=== PATIENT | male | born 1955 | race Caucasian/White ===

== ENCOUNTER 2016-11-26 06:39 | Day surgery (SDC) | payer MEDICARE, MEDICAID ==
[2016-11-26] MEDS: Lactated Ringers 1,000 ML IV SCH ×2 (07:48→10:29)
[2016-11-26] MEDS ORDERED: ceFAZolin 2 GM in Premix Bag 1 BAG IV ONE (08:00)
[2016-11-26] MEDS ORDERED: Ketorolac 30 MG/ML SDV IVPUSH ONE (08:15)
[2016-11-26] MEDS ORDERED: Glycopyrrolate 0.2 MG/ML 5 ML MDV IV ONE (08:15)
[2016-11-26] MEDS ORDERED: fentaNYL 100 MCG/2 ML SDV IV ONE (08:15)
[2016-11-26] MEDS ORDERED: ePHEDrine 50 MG/ML SDV IV ONE (08:15)
[2016-11-26] MEDS ORDERED: Midazolam 1 MG/ML 2 ML SDV IV ONE (08:15)
[2016-11-26] MEDS ORDERED: Propofol 200 MG/20 ML SDV IV ONE (08:15)
[2016-11-26] MEDS ORDERED: Rocuronium 50 MG/5 ML Vial IV ONE (08:15)
[2016-11-26] MEDS ORDERED: Succinylcholine 200 MG/10 ML MDV IV ONE (08:15)
[2016-11-26] MEDS ORDERED: Lidocaine 2% 100 MG/5 ML Syringe IVPUSH ONE (08:15)
[2016-11-26] MEDS ORDERED: Ondansetron 4 MG/2 ML SDV IVPUSH ONE (08:15)
[2016-11-26] MEDS ORDERED: Dexamethasone 4 MG/ML 5 ML MDV IVPUSH ONE (08:15)
[2016-11-26] MEDS ORDERED: Neostigmine Methylsulfate 10 MG/10 ML MDV IVPUSH ONE (08:15)
--- NOTE | 2016-11-26 08:22 | PCM.PN ---
- General Info Date of Service: 11/26/16 - Review of Systems Systems Review Comment:: 61 y/o male here for repair of ventral upper abdominal hernia. Site confirmed with patient and marked. He is stable to proceed with no recent significant changes to his health status. He agrees to proceed. - Patient Data Vitals - Most Recent: Last Vital Signs Temp 97.9 F 11/26/16 07:15 Pulse 56 L 11/26/16 07:15 Resp 20 11/26/16 07:15 BP 158/95 H 11/26/16 07:15 Pulse Ox 95 11/26/16 07:15 Weight - Most Recent: 238 lb Med Orders - Current: Current Medications Lactated Ringer's (Ringers, Lactated) 1,000 mls @ 125 mls/hr IV ASDIRECTED [facility] Last Admin: 11/26/16 07:48 Dose: 125 mls/hr Cefazolin Sodium/Dextrose 2 gm (/ Premix) 50 mls @ 100 mls/hr IV ONETIME ONE Stop: 11/26/16 08:29 Last Admin: 11/26/16 07:50 Dose: 100 mls/hr - Problem List Review Problem List Initiated/Reviewed/Updated: Yes - My Orders Last 24 Hours: My Active Orders 11/26/16 06:45 Patient Status [ADT] Routine Patient to Empty Bladder [RC] ASDIRECTED Verify Patient Consent Obtain [RC] ASDIRECTED Lactated Ringers [Ringers, Lactated] 1,000 ml IV ASDIRECTED Peripheral IV Insertion Adult [OM.PC] Routine Sequential Compression Device [OM.PC] Routine 11/26/16 08:00 ceFAZolin [Ancef] 2 gm Premix Bag 1 bag IV ONETIME 11/26/16 Breakfast Nothing Per Oral Diet [DIET] - Assessment Assessment:: Ventral hernia - Plan Plan:: Ventral hernia repair
[2016-11-26] MEDS ORDERED: Bupivacaine 0.25% 30 ML SDV INJECT ONE ×2 (08:46→09:36)
[2016-11-26] MEDS ORDERED: ceFAZolin 1 GM Vial ONE (08:47)
--- NOTE | 2016-11-26 09:58 | PCM.OPNOTE ---
- General Post-Op/Procedure Note Date of Surgery/Procedure: 11/26/16 Operative Procedure(s): Repair Ventral Hernia with Mesh Findings: Attenuated linea alba causing ventral hernia Pre Op Diagnosis: Ventral Hernia Post-Op Diagnosis: Same Anesthesia Technique: General ET Tube Primary Surgeon: Jim Herman Pathology: none Output, Urine Amount: 0 EBL in mLs: 20 Complications: None Condition: Good
[2016-11-26] MEDS ORDERED: Acetaminophen/oxyCODONE 325-5 MG Tab PO PRN (11:01)
[2016-11-26 11:29] VITALS: BP 145/95
--- NOTE | 2016-11-26 12:21 | OR ---
DATE OF OPERATION: 11/26/2016 SURGEON: Jim Herman MD REFERRING PHYSICIAN: Celine Riojas MD. PREOPERATIVE DIAGNOSIS: Ventral hernia. POSTOPERATIVE DIAGNOSIS: Ventral hernia. OPERATION PERFORMED: Repair of ventral hernia with mesh. INDICATIONS FOR SURGERY: This 61-year-old male has been noticing an intermittent bulge in his mid upper abdomen above the umbilicus. This is at times painful for him and does sometimes also interfere with his regular activities. FINDINGS: The patient has attenuated fascia of the linea alba above the umbilicus almost up to the area of the xiphoid. The fascia is quite thin in this area. There does not appear to be any underlying bowel involvement. The adjacent musculature appears satisfactory. PROCEDURE IN DETAIL: The patient was taken to the operating room, given general endotracheal anesthesia. The abdomen was sterilely prepped and draped. A vertical midline abdominal incision was made. This was carefully carried down to the underlying midline fascia which was exposed and incised in the midline. This was carefully examined along its length from just below the xiphoid to the umbilicus. The fascia was noted to be markedly attenuated. The underlying peritoneum was not entered but there did not appear to be any evidence of bowel involvement. The fascia in the midline was cleared of subcutaneous tissue and a markedly attenuated areas are trimmed out. The midline fascia was then reapproximated in a [id number] fashion bringing the left side of the fascia anterior to the right side of the divided fascia. This fascia closure was secured in the midline with interrupted 0 Prolene sutures and incorporated on the anterior surface of the fascia in these repaired sutures is a piece of polypropylene mesh. This repaired the attenuated fascia reapproximating the rectus muscle in their anatomic position and reinforced the midline fascia with mesh. After the fascia had been repaired in the midline with the mesh secured to it, the lateral edges of the mesh were trimmed and then the periphery of the mesh was tacked down to the underlying fascia with a running 0 Vicryl. The wound was irrigated with Ancef and saline solution which had also been used to soak the mesh before its placement. The wound was infiltrated with Marcaine. Then closure was completed by approximating the subcutaneous tissue and tacking it down to the underlying mesh with interrupted 3-0 Vicryl and the skin was closed with running 4-0 Vicryl subcuticular stitch, Steri-Strips and Benzoin. Sterile dry dressing was placed. The patient was then awakened, extubated, and taken from the operating room in satisfactory condition. ESTIMATED BLOOD LOSS: 20 mL. COMPLICATIONS: None. PROGNOSIS: Good. /[id number] MARTHA/ALYSE
== END 2016-11-26 12:16 | disposition home or self-care (01) ==
LOC: FB.SDS 06:39
PROVIDERS: ATTEND Surgery
DX: K43.9 Ventral hernia without obstruction or gangrene (principal); J45.909 Unspecified asthma, uncomplicated; K21.9 Gastro-esophageal reflux disease without esophagitis; J44.9 Chronic obstructive pulmonary disease, unspecified; Z88.0 Allergy status to penicillin; Z88.1 Allergy status to other antibiotic agents; Z96.659 Presence of unspecified artificial knee joint; F17.210 Nicotine dependence, cigarettes, uncomplicated
CPT/HCPCS: 49560; 49568; A9270; J0330; J0690; J1100; J1885; J2250; J2405; J2704; J2710; J3010; J7120; 00750-QZ; C1781; J3490